=== PATIENT | male | born 1970 | race Caucasian/White ===

== ENCOUNTER → 2020-04-03 13:04 | Outpatient (BNVA) | payer OTHER, SELFPAY | PROVIDERS: Visit Provider Nurse Practitioner Family | DX: Z11.59 Encounter for screening for other viral diseases (principal); Z20.828 Contact with and (suspected) exposure to other viral communicable diseases; J06.9 Acute upper respiratory infection, unspecified | CPT/HCPCS: 87635 ==

== ENCOUNTER → 2021-06-30 08:26 | Outpatient (BNVA) | payer OTHER, SELFPAY | PROVIDERS: Visit Provider Nurse Practitioner Family | DX: Z20.822 Contact with and (suspected) exposure to COVID-19 (principal); Z20.828 Contact with and (suspected) exposure to other viral communicable diseases | CPT/HCPCS: 87635 ==

== ENCOUNTER → 2021-08-04 10:10 | Outpatient (BNVA) | payer OTHER, SELFPAY | PROVIDERS: Visit Provider Nurse Practitioner Family | DX: Z20.822 Contact with and (suspected) exposure to COVID-19 (principal); Z20.828 Contact with and (suspected) exposure to other viral communicable diseases | CPT/HCPCS: 87635 ==

== ENCOUNTER → 2022-01-12 10:16 | Outpatient (BNVA) | payer OTHER, SELFPAY | PROVIDERS: Referring Provider Family Medicine; Visit Provider Specialist | DX: R20.0 Anesthesia of skin (principal); R20.2 Paresthesia of skin | CPT/HCPCS: 73110 ==

== ENCOUNTER 2022-06-11 15:37 | Emergency (ER) | payer OTHER, SELFPAY ==
[2022-06-11 15:43] VITALS: BP 142/96; PULSE 89; RESP 18; TEMP 36.4; O2SAT 95; BMI 30.2
--- NOTE | 2022-06-11 16:08 | ED_ITS ---
HPI - General Adult General: Chief complaint: General Medical Stated complaint: high BG Time Seen by Provider: 06/11/22 16:08 History of Present Illness: Mr. Park is a 52-year-old gentleman with significant past medical history of type 2 diabetes presenting to the emergency department due to generalized illness. He reports at least a few days of feeling generally unwell with increased thirst and urination and generalized malaise. He also endorses some chest discomfort and increased frequency of reflux heartburn type symptoms. He does not typically check his blood sugars an d is unsure of how long they have been high but noticed that he did check them yesterday because he was feeling unwell and noticed that they were higher than normal. Denies significant changes in diet. Has been compliant with medication regimen. Intensity symptoms is moderate. Course has worsened. No other specific changes in health, exacerbating, or alleviating factors identified. Onset (ago): day(s) Severity: moderate Relieving factors: none Exacerbating factors: none Associated symptoms: Reports malaise Review of Systems General: Reports: 10 or more systems reviewed and unremarkable except in HPI and below Const: Reports: malaise PFS ED PFSH: Medical History Hypertension Type 2 diabetes mellitus Social History Smoking and tobacco status: never smoked Alcohol intake: never History of recent travel: No Physical Exam Const: COMMON NORMALS: alert GENERAL APPEARANCE: cooperative and well developed HENMT: COMMON NORMALS: normocephalic and atraumatic HEAD & SCALP: normocephalic and atraumatic Eye: COMMON NORMALS: conjunctivae normal CONJUNCTIVA: Yes conjunctivae normal SCLERA: sclerae normal Neck/C-Spine: COMMON NORMALS: supple GENERAL: Yes trachea midline Resp: COMMON NORMALS: clear to auscultation bilaterally EFFORT & INSPECTION: Yes able to speak in complete sentences AUSCULTATION: clear to auscultation bilaterally Cardio: COMMON NORMALS: regular rate and regular rhythm RATE: regular rate RHYTHM: regular rhythm GI: COMMON NORMALS: Soft to palpation PALPATION: Yes Soft to palpation and No Tenderness to palpation present (GI) Extremity: GENERAL: Yes normal exam except as noted and No edema Neuro: COMMON NORMALS: moves all extremities SENSORIUM/ORIENTATION: Yes alert and No Orientation impaired Psych: COMMON NORMALS: mental status grossly normal and Normal thought process present THOUGHT PROCESS: Normal thought process present Course Vital Signs: Vital signs: Vital Signs Temperature 97.5 F L 06/11/22 15:43 Pulse Rate 67 06/11/22 18:18 Respiratory Rate 16 06/11/22 18:18 Blood Pressure 137/86 06/11/22 18:18 Pulse Oximetry 99 06/11/22 18:18 Oxygen Delivery Me thod 06/11/22 18:18 MDM - General Adult Medical Decision Making 52-year-old gentleman with history of diabetes presenting with generalized illness. Exam as above EKG notable for sinus rhythm with nonspecific ST segment abnormalities, no STEMI. Hematologic panel with mild hemoconcentration. Metabolic panel with hy perglycemia and spurious hyponatremia. Ketones are negative, there is no evidence of DKA and ABG is normal. Viral rapid testing is negative. Chest x-ray with no lobar consolidation, no pneumothorax. Patient feels improved and glucoses improved with fluid bolus. Most likely etiology of patient's symptoms is diabetic hyperglycemia without evidence of DKA or HHS. Apparently the patient had issues with metformin and GI upset in the past. Plan to initiate the patient on initially low-dose insulin glargine and have patient follow-up closely with primary care for titration. The results of ED evaluation were discussed with the patient including prescriptions and/or symptomatic cares (if applicable) including appropriate and responsible use, followup plan, and return precautions. The patient verbalized understanding and felt safe for discharge. Medical Records I reviewed the patient's medical records. Lab Data I reviewed the patient's lab results. 06/11/22 17:32 06/11/22 17:32 Radiology Impressions Chest X-Ray 06/11/22 16:15 IMPRESSION: No acute findings. Laboratory Results WBC 8.3 10^3/uL (4.0-10.0) 06/11/22 17:32 RBC 5.40 10^6/uL (4.1-5.3) H 06/11/22 17:32 Hgb 15.3 g/dL (11.7-16.6) 06/11/22 17:32 Hct 44.9 % (42.0-52.0) 06/11/22 17:32 MCV 83.1 fl (80-94) 12/17/22 17:32 MCH 28.3 pg (28.0-34.0) 06/11/22 17: MCHC 34.1 g/dL (30.0-36.0) 06/11/22 17:32 RDW 12.3 % (12.1-15.1) 06/11/22 17:32 Plt Count 294 10^3/cmm (130-400) 06/11/22 17: MPV 11.6 fL (7.4-10.4) H 06/11/22 17:32 Neut % (Auto) 59.9 % 06/11/22 17:32 Lymph % (Auto) 28.6 % 06/11/22 17:32 [place] % (Auto) 7.1 % 06/11/22 17:32 Eos % (Auto) 3.3 % 06/11/22 17:32 Baso % (Auto) 0.6 % 06/11/22 17: Neut # (Auto) 4.95 10^3/uL (1.8-7.7) 06/11/22 17:32 Lymph # (Auto) 2.4 10^3/uL (0.8-4.8) 06/11/22 17:32 [place] # (Auto) 0.6 10^3/uL (0.2-0.9) 06/11/22 17:32 Eos # (Auto) 0.3 10^3/uL (0.0-0.8) 06/11/22 17: Baso # (Auto) 0.1 10^3/uL (0.0-0.1) 06/11/22 17:32 Nucleated RBC % (auto) 0 % 06/11/22 17: Nucleated RBCs # 0.0 /100WBC 06/11/22 17:32 Specimen Type Arterial 06/11/22 16:24 Sample Site Brachial, right 06/11/22 16:24 ABG pH 7.42 (7.35-7.45) 06/11/22 16:24 ABG pCO2 40.3 mmHg (35-45) 06/11/22 16:24 ABG pO2 69.6 mmHg (80.0-100.0) L 06/11/22 16:24 ABG HCO3 25.9 mmol/L (22-26) 06/11/22 16:24 ABG Base Excess 1.2 mmol/L (-2.0-2.0) 06/11/22 16:24 Hadley Test N/a 06/11/22 16:24 Hematocrit 44.0 % (42-52) 06/11/22 16:24 O2 Delivery Device Room air 06/11/22 16:24 FiO2 21.0 % 06/11/22 16:24 [employer] Production [employer] ID glc 06/11/22 16:24 Sodium 135 mmol/L (136-145) L 06/11/22 17:32 Potassium 4.1 mmol/L (3.5-5.1) 06/11/22 17:32 Chloride 96 mmol/L (98-107) L 06/11/22 17:32 Carbon Dioxide 29 mmol/L (22-29) 06/11/22 17:32 Anion Gap 14.1 (5-19) 06/11/22 17:32 BUN 15 mg/dL (6-20) 06/11/22 17:32 Creatinine 0.8 mg/dL (0.7-1.2) 06/11/22 17:32 GFR Calculation 101.1 mL/min (90-130) 06/11/22 17:32 Glucose 355 mg/dL (65-115) H 06/11/22 17:32 POC Glucose 255 mg/dL (70-110) H 06/11/22 19:20 Calculated Osmolality 295 mOsm/kg (285-295) 06/11/22 17:32 Calcium 10.0 mg/dL (8.5-10.5) 06/11/22 17:32 Total Bilirubin 0.2 mg/dL (0.15-1.2) 06/11/22 17:32 AST 22 U/L (0-40) 06/11/22 17: ALT 37 U/L (0-41) 06/11/22 17:32 Alkaline Phosphatase 94 U/L (40-130) 06/11/22 17:32 Troponin T Baseline 6 ng/L (0-15) 06/11/22 17:32 Troponin T 120 Minute 6.00 ng/L (0-15) 06/11/22 19:02 Delta Troponin T 0 ABS# (0-10) 06/11/22 19:02 Total Protein 7.5 g/dL (6.6-8.7) 06/11/22 17:32 Albumin 4.4 g/dL (3.5-5.2) 06/11/22 17:32 Globulin 3.1 g/dL (1.3-4.6) 06/11/22 17:32 Urine Color Straw (Yellow) 06/11/22 17:32 Urine Appearance Clear (CLEAR) 06/11/22 17:32 Urine pH 5 (5-7) 06/11/22 17:32 Ur Specific [place] 1.015 (1.005-1.030) 06/11/22 17:32 Urine Protein Neg (Negative) 06/11/22 17:32 Urine Glucose (UA) 4+ (Normal) H 06/11/22 17:32 Urine Ketones 1+ (Negative) H 06/11/22 17:32 Urine Blood Neg (Negative) 06/11/22 17:32 Urine Nitrate Negative (Negative) 06/11/22 17:32 Urine Bilirubin Neg (Negative) 06/11/22 17:32 Urine Urobilinogen Norm mg/dL (Negative) 06/11/22 17:32 Ur Leukocyte Esterase Negative (Negative) 06/11/22 17:32 Serum Ketones Negative (Negative) 06/11/22 17:32 Influenza Type A Ag negative (Negative) 06/11/22 17:58 Influenza Type B Ag negative (Negative) 06/11/22 17:58 SARS-CoV-2 Ag (Rapid) negative (Negative) 06/11/22 17:58 Discharge Plan Discharge Patient Disposition: Home Clinical Impression: Hyperglycemia due to type 2 diabetes mellitus Condition: Stable Prescriptions: No Action atorvastatin 10 mg tablet 10 mg PO DAILY Januvia 100 mg tablet 100 mg PO DAILY Lantus Solostar U-100 Insulin 100 unit/mL (3 mL) insulin pen 30 unit SUBCUT BID Qty: 15 6RF Rx Instructions: Increase by 5 units every 3 days that fasting glucose is >150 consistently. glipizide 5 mg tablet 5 mg PO BID Qty: 60 6RF lisinopril 20 mg tablet 20 mg PO DAILY Qty: 90 3RF Discharge Orders: Discharge ED (Routine); Ordered 06/11/22 Ordered By: Johan Lin Referrals: Junaid Soares MD [Primary Care Provider] - Discharge Diet: Diabetic Discharge Activity: Increase activity as tolerated Patient Instructions: Insulin Glargine (By injection) (Lantus, Lantus SoloStar, Toujewendy, Semglee), How to Give an Insulin Injection (ED), Diabetic Hyperglycemia (ED) Activity Restrictions/Additional Instructions: Thank you for visiting the emergency department. You were seen and evaluated for high blood sugar and associated symptoms. Though your blood sugar is high I do not see evidence of diabetic ketoacidosis or HHS that would require hospitalization. Please follow-up with your primary care provider. I will prescribe low-dose insulin glargine. Return to the emergency department for anything that you are concerned about and feel needs emergency department evaluation. Coding Level of Care Code ED [employer]anger for Cailing Fwd Exam Comprehensive
[2022-06-11 16:09] LABS: Glucose Point of Care 478 mg/dL (70-110)
--- NOTE | 2022-06-11 16:15 | XRR_ITS ---
PROCEDURE INFORMATION: Exam: XR Chest Exam date and time: 06/11/2022 4:38 PM Age: 52 years old Clinical indication: Pain; Chest pressure; Additional info: Cp TECHNIQUE: Imaging protocol: Radiologic exam of the chest. Views: 1 view. COMPARISON: No relevant prior studies available. FINDINGS: Lungs: Unremarkable. No consolidation. Pleural spaces: Unremarkable. No pleural effusion. No pneumothorax. Heart/Mediastinum: Unremarkable. No cardiomegaly. Bones/joints: Unremarkable. XR/XR chest 1V portable [id number] IMPRESSION: No acute findings.
--- NOTE | 2022-06-11 16:16 | ECG_ITS ---
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
[2022-06-11 16:36] LABS: ABG PCO2 40.3 mmHg (35-45); ABG PH Result 7.42 (7.35-7.45); Base Excess ABG 1.2 mmol/L (-2.0-2.0); Blood Gas Operator Identificat glc; Blood Gas Sample Site Brachial, right; Blood Gas Sample Type Arterial; HCO3 ABG 25.9 mmol/L (22-26); Oxygen Device ROOM AIR; PO2 ABG 69.6 mmHg (80.0-100.0)
[2022-06-11 17:42] VITALS: BP 123/80; PULSE 76; RESP 16; O2SAT 97
[2022-06-11 17:44] LABS: Basophils # 0.1 10^3/uL (0.0-0.1); Basophils % 0.6 %; Eosinophils # 0.3 10^3/uL (0.0-0.8); Eosinophils % 3.3 %; Hematocrit 44.9 % (42.0-52.0); Hemoglobin 15.3 g/dL (11.7-16.6); Lymphocytes # 2.4 10^3/uL (0.8-4.8); Lymphocytes % 28.6 %; Mean Corpuscular HGB Conc 34.1 g/dL (30.0-36.0); Mean Corpuscular Hemoglobin 28.3 pg (28.0-34.0); Mean Corpuscular Volume 83.1 fl (80-94); Mean Platelet Volume 11.6 fL (7.4-10.4); Monocytes # 0.6 10^3/uL (0.2-0.9); Monocytes % 7.1 %; Neutrophils # 4.95 10^3/uL (1.8-7.7); Neutrophils % 59.9 %; Nucleated Red Blood Cells % 0 %; Platelet Count 294 10^3/cmm (130-400); Red Cell Distribution Width 12.3 % (12.1-15.1); White Blood Count 8.3 10^3/uL (4.0-10.0)
[2022-06-11 17:57] LABS: Add Urine Microscopic? NO; Charge for UA Resulting for Rev
[2022-06-11 18:01] LABS: Protein Urine Neg (Negative); Specific Gravity, Urine 1.015 (1.005-1.030); Urine Appearance Clear (CLEAR); Urine Color Straw (Yellow); pH Urine 5 (5-7)
[2022-06-11 18:02] LABS: Glucose Urine UA 4+ (Normal); Ketones Urine 1+ (Negative)
[2022-06-11 18:05] LABS: Bilirubin Urine Neg (Negative); Blood Urine Neg (Negative); Leukocyte Esterase Urine Negative (Negative); Nitrate Urine Negative (Negative); Urobilinogen Urine Norm (Negative)
[2022-06-11 18:09] LABS: Ketone (Acetest) Serum Negative (Negative)
[2022-06-11] MEDS: sodium chloride 0.9% 1,000 ML 999 ML IV (18:13)
--- NOTE | 2022-06-11 18:16 | ECG_ITS ---
[facility] Test Date: 2022-06-11 Pat Name: Celio Park Department: Room: Gender: Male [employer] Justice: : 1970 Requested By: Johan Lin Order Number: [id number] Reading MD: Ryan Haji Measurements Intervals [place] Rate: 66 P: 16 AL: 132 QRS: 40 QRSD: 94 T: 21 QT: 378 QTc: 396 Interpretive Statements SINUS RHYTHM NONSPECIFIC T-WAVE ABNORMALITY Compared to ECG 06/11/2022 16:37:24 T-wave abnormality now present Electronically Signed On 06-12-2022 15:42:15 DIGITAL PRESS OPERATOR by Ryan Haji [id number]
[2022-06-11 18:18] VITALS: BP 137/86; PULSE 67; RESP 16; O2SAT 99
[2022-06-11 18:21] LABS: Alanine Aminotransferase 37 U/L (0-41); Albumin Level 4.4 g/dL (3.5-5.2); Alkaline Phosphatase 94 U/L (40-130); Anion Gap 14.1 (5-19); Aspartate Amino Transferase 22 U/L (0-40); Blood Urea Nitrogen 15 mg/dL (6-20); Carbon Dioxide 29 mmol/L (22-29); Chloride 96 mmol/L (98-107); Globulin 3.1 g/dL (1.3-4.6); Glomerular Filtration Rate 101.1 mL/min (90-130); Glucose 355 mg/dL (65-115); Osmolality Calculated 295 mOsm/kg (285-295); Potassium 4.1 mmol/L (3.5-5.1); Sodium 135 mmol/L (136-145); Total Bilirubin 0.2 mg/dL (0.15-1.2); Total Protein 7.5 g/dL (6.6-8.7)
[2022-06-11 18:22] LABS: Troponin(5th) Baseline 6 ng/L (0-15)
[2022-06-11 18:24] LABS: Influenza A by IFA negative (Negative); Influenza B by IFA negative (Negative); SARS Covid-2 Antigen negative (Negative)
[2022-06-11 19:34] LABS: Glucose Point of Care 255 mg/dL (70-110)
[2022-06-11 19:57] LABS: Troponin 5 2HR Delta 0 ABS# (0-10)
== END 2022-06-11 19:55 | disposition home or self-care (01) ==
PROVIDERS: Emergency Provider Emergency Medicine; PCP Family Medicine
DX: E11.65 Type 2 diabetes mellitus with hyperglycemia (principal); Z79.84 Long term (current) use of oral hypoglycemic drugs; Z79.4 Long term (current) use of insulin; Z20.822 Contact with and (suspected) exposure to COVID-19; I10 Essential (primary) hypertension
CPT/HCPCS: 36415; 36416; 36600; 71045; 80053; 81003; 82009; 82803; 82962; 84484; 85025; 87426; 87804; 93005; 99285; J7030

== ENCOUNTER 2022-08-12 06:42 | Day surgery (SDC) | payer OTHER, SELFPAY ==
[2022-08-11 11:11] VITALS: BMI 30.1
[2022-08-12] VITALS (8 sets, daily range): BP systolic 95–124; BP diastolic 73–91; PULSE 65–93; RESP 9–18; TEMP 36.1–36.3; O2SAT 96–100
--- NOTE | 2022-08-12 06:52 | P.HPUD_ITS ---
Surgery/Procedure H&P Update DATE OF PROCEDURE: August 12, 2022 DATE H&P PERFORMED: 07/25/22 H&P UPDATE INFORMATION: I have reviewed H&P completed within last 30 days, I have examined patient prior to procedure, No changes to prior documentation and [place] is [place] [facility] [place] indicated PREOP DIAGNOSIS: Right carpal tunnel syndrome PLANNED PROCEDURE: Operation Date: 08/12/22 08:10 Proposed Procedures p RIGHT CARPAL TUNNEL RELEASE 92071 G56.00(Right) - Alexandra Benitez MD Related Problem List Diagnoses (1) Carpal tunnel syndrome on right:
[2022-08-12] MEDS: sodium chloride 0.9% 1,000 ML 30 ML IV (07:11)
[2022-08-12] MEDS: acetaminophen 1,000 MG/100 ML PIGGYBACK 400 MG IV (07:11)
[2022-08-12] MEDS: CELEcoxib 200 mg Capsule 400 MG PO (07:21)
[2022-08-12 07:29] LABS: Glucose Point of Care 147 mg/dL (70-110)
--- NOTE | 2022-08-12 07:47 | ANES.PREANE2 ---
Pre-Anesthetic Assessment Height/Weight: Height 1.73 m Weight 89.811 kg Temp Pulse Resp BP Pulse Ox O2 Del Method 97.4 F L 80 17 124/91 96 Nasal Cannula 08/12/22 07:00 08/12/22 07:00 08/12/22 07:00 08/12/22 07:00 08/12/22 07:00 08/12/22 07:00 Preop Diagnosis: Right carpal tunnel syndrome Operation Date: 08/12/22 08:10 Proposed Procedures p RIGHT CARPAL TUNNEL RELEASE 70409 G56.00(Right) - Alexandra Benitez MD Familial anesthetic complications: none Was Beta Rachell taken within 24 hours: N/A Was Clonidine taken within 24 hours: N/A Last intake: Intake Last Liquid Date 08/11/22 Last Liquid Time 20:00 Last Solid Date 08/11/22 Last Solid Time 18:00 Social No alcohol and No tobacco Exam alert, oriented x 3, clear to auscultation bilaterally and regular rate & rhythm Airway Submandibular: within normal limits Cervical ROM: within normal limits Mallampati: Class II Dentition: full CV/HEM Hypertension Metabolic Diabetes Mellitus and Hyperlipidemia Anesthetic Plan ASA status: 2 Anesthesia: Choice Medications/Allergies Home Medications Medication Instructions Recorded Confirmed Last Taken Type lisinopril 20 mg tablet 20 mg PO DAILY #90 tabs 01/28/22 08/12/22 08/11/22 Rx atorvastatin 10 mg tablet 10 mg PO DAILY 03/01/22 08/12/22 08/11/22 History glipizide 5 mg tablet 5 mg PO BID #60 tabs 06/14/22 08/12/22 08/11/22 Rx pen needle, diabetic 32 gauge x #100 ea 06/15/22 07/25/22 Unknown Rx 3/16 (Comfort Touch Pen Needle) blood-glucose transmitter #1 ea 06/20/22 07/25/22 Unknown Rx (Eversense E3 Smart Transmitter device) glucose #1 ea 06/20/22 07/25/22 Unknown Rx sensor,implantable,continuous with dexamethasone subcutaneous (Eversense E3 Sensor-Jerry subcutaneous device) insulin glargine 100 unit/mL (3 20 unit SUBCUT BID 06/30/22 08/12/22 08/11/22 History mL) subcutaneous pen (Lantus Solostar U-100 Insulin) sitagliptin phosphate 100 mg 100 mg PO DAILY 08/11/22 08/12/22 08/11/22 History tablet (Januvia) Allergies Allergy/AdvReac Type Severity Reaction Status Date / Time amoxicillin Allergy Intermediate rash Verified 07/25/22 08:05 Current Medications Generic Name Dose Route Start Last Admin Trade Name Freq PRN Reason Stop Dose Admin Sodium Chloride 1,000 mls @ 30 mls/hr 08/12/22 07:00 08/12/22 07:11 Sodium Chloride 0.9% IV 08/13/22 06:59 30 mls/hr .Q24H GISELLE Administration PFSH Anesthesia Medical History (Updated 07/25/22 @ 11:49 by Alexandra Benitez MD) Hypertension Type 2 diabetes mellitus Social History Smoking and tobacco status: never smoked Alcohol intake: never History of recent travel: No Data Anesthesia Cardiac Studies: No Data to Display
[2022-08-12] MEDS: clindamycin 600 MG/50 ML PREMIX 100 MG IV (07:59)
--- NOTE | 2022-08-12 08:35 | PM.OP ---
Operative Report Date of procedure: August 12, 2022 Pre-op diagnosis: Right carpal tunnel syndrome? Post-op diagnosis: Right carpal tunnel syndrome? Post-op findings: Severe compression across the median nerve with adherence to the undersurface of the transverse carpal ligament. Narrowing and fibrous tissue within the canal. Slight purplish discoloration. Procedure done: Right carpal tunnel release Pathology: none sent Surgeon: Alexandra Benitez Bottom Turning Lathe Tender: None Anesthesia: General (Per LMA, ASA 2) Estimated blood loss (mL): 3 Tourniquet time (min): 12 (At 250 mmHg) IV fluids (mL): 500 Urine output (mL): 0 (No [place]) Complications: None Condition: stable Disposition: PACU (Then return to same-day surgery for discharge to home) Brief History: This is a 52 year old male patient here today for a right carpal tunnel release.? He explains his symptoms worsened over time, and they impacted his activities of daily living. He states the pain and numbness sensations make it difficult for him to sleep at night. Risks and complications of surgery were discussed with the patient when he was seen in my office at his preoperative visit. Questions were answered and consents were signed. The patient is again seen in the preop holding area and given the opportunity to ask questions and the surgical procedure is again reviewed. Procedure: The patient was brought to the operating theater. The patient had general anesthesia per LMA, ASA 2. The tourniquet was elevated to 250 mmHg for a total tourniquet time of 12 minutes. The patient was also given Ancef 2 g preoperatively. The arm was then prepped and draped with DuraPrep in usual fashion with the arm draped free. A surgical pause was performed. At the time, the surgical pause, we confirmed the site and side of surgery. We also confirmed the patient's identity, appropriate and timely administration of preoperative antibiotics and preoperative surgical markings. An incision was then made along the thenar crease. The incision crossed the wrist joint in a curvilinear fashion. Dissection continued through skin and soft tissues using a scalpel. The palmaris longus was identified along with the transverse carpal ligament. Each of these was released carefully to avoid injury to the median nerve. We were able to dissect gently into the carpal canal which was noted to be quite tight with significant compression across the median nerve. The nerve was visualized and was an hourglass shape with adherence to the undersurface of the transverse carpal ligament.? There is also purplish discoloration to the nerve.? The canal was subsequently palpated to assure there was no bony encroachment upon the canal. There was a quite thickened fibrous tissue within the canal, and this was opened longitudinally as well. The canal was then palpated distally and proximally to assure that my small finger was passed easily without impingement. Finding this to be so, attention was directed to closure. The wound was irrigated with ropivacaine plain. It was then closed with 3-0 nylon in an interrupted mattress fashion. Sterile dressing was then placed consisting of Dermabond, OpSite, fluffed fluffs, sterile soft roll, and an Raul wrap. The tourniquet was released after 12 minutes. There were no complications. There were no specimens. The procedure was well tolerated. Plan is the patient will be discharged home. Related Problem List Diagnoses (1) Carpal tunnel syndrome on right:
[2022-08-12] MEDS: HYDROcodone-acetaminophen 5-325 mg Tablet 1 TAB PO (09:41)
--- NOTE | 2022-08-12 14:17 | ANE.PACU2 ---
Inpatient post-anesthesia follow up: Airway intact: Yes Vital signs: Temperature 97.0 F Pulse Rate 65 Respiratory Rate 18 Blood Pressure 117/86 Pulse Oximetry 99 Oxygen Delivery Me thod Room Air Oxygen Flow Rate 6 Fraction of Inspir ed Oxygen Hydration adequate: Yes Nausea and vomiting: No Pain level: 2 Mental status: Baseline
== END 2022-08-12 09:55 | disposition home or self-care (01) ==
PROVIDERS: PCP Family Medicine; Visit Provider Specialist
PROC: (CPT 64721; principal; 2022-08-12 08:10)
DX: G56.01 Carpal tunnel syndrome, right upper limb (principal); I10 Essential (primary) hypertension; E11.9 Type 2 diabetes mellitus without complications; E78.5 Hyperlipidemia, unspecified; Z79.4 Long term (current) use of insulin
CPT/HCPCS: 64721; 36416; 82962; J0131; J1100; J1200; J2405; J2704; J3010; J3490; J7030

== ENCOUNTER 2022-09-02 09:12 | Day surgery (SDC) | payer OTHER, SELFPAY ==
[2022-09-01 11:46] VITALS: BMI 30.4
[2022-09-02] VITALS (9 sets, daily range): BP systolic 121–174; BP diastolic 78–99; PULSE 74–90; RESP 16–18; TEMP 36.5–36.7; O2SAT 95–98
--- NOTE | 2022-09-02 08:12 | P.HPUD_ITS ---
Surgery/Procedure H&P Update DATE OF PROCEDURE: September 02, 2022 DATE H&P PERFORMED: 07/25/22 H&P UPDATE INFORMATION: I have reviewed H&P completed within last 30 days, I have examined patient prior to procedure, No changes to prior documentation and H&[place] is in [facility] [place] date indicated PREOP DIAGNOSIS: Right carpal tunnel syndrome PLANNED PROCEDURE: Operation Date: 09/02/22 10:45 Proposed Procedures p LEFT CARPAL TUNNEL RELEASE 88629, G56.00(Left) - Alexandra Benitez MD Related Problem List Diagnoses (1) Carpal tunnel syndrome, left:
[2022-09-02] MEDS: acetaminophen 1,000 MG/100 ML PIGGYBACK 400 MG IV (09:50)
[2022-09-02] MEDS: sodium chloride 0.9% 1,000 ML 30 ML IV (09:51)
[2022-09-02 09:57] LABS: Glucose Point of Care 121 mg/dL (70-110)
[2022-09-02] MEDS: CELEcoxib 200 mg Capsule 400 MG PO (09:57)
--- NOTE | 2022-09-02 09:58 | ANES.PREANE2 ---
Pre-Anesthetic Assessment Height/Weight: Height 1.73 m Weight 90.718 kg Temp Pulse Resp BP Pulse Ox O2 Del Method 97.9 F 80 16 126/86 96 09/02/22 09:40 09/02/22 09:40 09/02/22 09:40 09/02/22 09:40 09/02/22 09:40 09/02/22 09:40 Preop Diagnosis: Left carpal tunnel syndrome Operation Date: 09/02/22 10:45 Proposed Procedures p LEFT CARPAL TUNNEL RELEASE 47632, G56.00(Left) - Alexandra Benitez MD Familial anesthetic complications: PONV Was Beta Rachell taken within 24 hours: N/A Was Clonidine taken within 24 hours: N/A Last intake: Intake Last Liquid Date 09/01/22 Last Liquid Time 21:00 Last Solid Date 09/01/22 Last Solid Time 20:00 Social No alcohol and No tobacco Exam alert, oriented x 3, clear to auscultation bilaterally and regular rate & rhythm Airway Mallampati: Class II Dentition: full CV/HEM Hypertension Metabolic Diabetes Mellitus and Hyperlipidemia Anesthetic Plan ASA status: 2 Anesthesia: General Risk of > 500 ml blood loss (7ml/kg in children): No Medications/Allergies Home Medications Medication Instructions Recorded Confirmed Last Taken Type lisinopril 20 mg tablet 20 mg PO DAILY #90 tabs 01/28/22 09/02/22 09/01/22 Rx atorvastatin 10 mg tablet 10 mg PO DAILY 03/01/22 09/02/22 09/01/22 History glipizide 5 mg tablet 5 mg PO BID #60 tabs 06/14/22 09/02/22 09/01/22 Rx morning dose only pen needle, diabetic 32 gauge x #100 ea 06/15/22 09/01/22 Unknown Rx 3/16 (Comfort Touch Pen Needle) blood-glucose transmitter #1 ea 06/20/22 09/01/22 Unknown Rx (Eversense E3 Smart Transmitter device) glucose #1 ea 06/20/22 09/01/22 Unknown Rx sensor,implantable,continuous with dexamethasone subcutaneous (Eversense E3 Sensor-Jerry subcutaneous device) insulin glargine 100 unit/mL (3 20 unit SUBCUT BID PRN blood sugar 06/30/22 09/02/22 08/31/22 History mL) subcutaneous pen (Lantus >150 Solostar U-100 Insulin) sitagliptin phosphate 100 mg 100 mg PO DAILY 08/11/22 09/02/22 09/01/22 History tablet (Januvia) Allergies Allergy/AdvReac Type Severity Reaction Status Date / Time amoxicillin Allergy Intermediate rash Verified 08/26/22 09:12 Current Medications Generic Name Dose Route Start Last Admin Trade Name Freq PRN Reason Stop Dose Admin Sodium Chloride 1,000 mls @ 30 mls/hr 09/02/22 09:30 09/02/22 09:51 Sodium Chloride 0.9% IV 09/03/22 09:29 30 mls/hr .Q24H GISELLE Administration PFSH Anesthesia Medical History Hypertension Type 2 diabetes mellitus Social History Smoking and tobacco status: never smoked Alcohol intake: never Data Anesthesia Cardiac Studies: No Data to Display
[2022-09-02] MEDS: ceFAZolin 2,000 MG in sodium chloride 0.9% (plus) 50 ML 100 MG IV (10:07)
--- NOTE | 2022-09-02 11:01 | P.OP_ITS ---
Operative Report Date of procedure: September 02, 2022 Pre-op diagnosis: Left carpal tunnel release Post-op diagnosis: Left carpal tunnel release Post-op findings: Severe compression across the median nerve. Adherence to the undersurface of the transverse carpal ligament with hourglass configuration and slight purplish discoloration. Procedure done: Left carpal tunnel release Pathology: none sent Surgeon: Alexandra Benitez Transitions Rn Care Coordinator: None Anesthesia: General (Per LMA, ASA 2) Estimated blood loss (mL): 6 Tourniquet time (min): 11 (At 250 mmHg) IV fluids (mL): 700 Urine output (mL): 0 (No Staton) Complications: None Condition: stable Disposition: PACU (Then return to same-day surgery for discharge to home) Brief History: This is a 52 year old male patient here today for a left carpal tunnel release.? He explains his symptoms worsened over time, and they impacted his activities of daily living. He states the pain and numbness sensations make it difficult for him to sleep at night.? Patient previously underwent right carpal tunnel release on August 12, 2022. He has done well following this and wishes to proceed with left carpal tunnel release. Risks and complications of surgery were discussed with the patient when he was seen in my office at his preoperative visit.? Questions were answered and consents were signed.? The patient is again seen in the preop holding area and given the opportunity to ask questions and the surgical procedure is again reviewed. Procedure: The patient was brought to the operating theater. The patient had general anesthesia per LMA, ASA 2. The tourniquet was elevated to 250 mmHg for a total tourniquet time of 11 minutes. The patient was also given Ancef 2 g preoperatively. The arm was then prepped and draped with DuraPrep in usual fashion with the arm draped free. A surgical pause was performed. At the time, the surgical pause, we confirmed the site and side of surgery. We also confirmed the patient's identity as well as appropriate and timely administration of preoperative antibiotics and preoperative surgical markings. An incision was then made along the thenar crease. The incision crossed the wrist joint in a curvilinear fashion. Dissection continued through skin and soft tissues using a scalpel. The palmaris longus was identified along with the transverse carpal ligament. Each of these was released carefully to avoid injury to the median nerve. We were able to dissect gently into the carpal canal which was noted to be quite tight with significant compression across the median nerve. The nerve was visualized and was an hourglass shape with adherence to the undersurface of the transverse carpal ligament.? There is also purplish discoloration to the nerve with an hourglass deformity.? The canal was subsequently palpated to assure there was no bony encroachment upon the canal. There was a quite thickened fibrous tissue within the canal, and this was opened longitudinally as well. The canal was then palpated distally and proximally to assure that my small finger was passed easily without impingement. Finding this to be so, attention was directed to closure. The wound was irrigated with ropivacaine plain. It was then closed with 3-0 nylon in an interrupted mattress fashion. Sterile dressing was then placed consisting of Dermabond, OpSite, fluffed fluffs, sterile soft roll, and an Raul wrap. The tourniquet was released after 11 minutes. There were no complications. There were no specimens. The procedure was well tolerated. Plan is the patient will be discharged home. Related Problem List Diagnoses (1) Carpal tunnel syndrome, left:
--- NOTE | 2022-09-02 11:04 | SUR.PHASEI ---
1052 pt to recovery via stretcher. resp even and unlabored. simple mask in place at 6L, spo2 97%. dressing dry and intact to left hand.
[2022-09-02] MEDS: HYDROcodone-acetaminophen 5-325 mg Tablet 1 TAB PO (11:48)
--- NOTE | 2022-09-02 12:25 | ANE.PACU2 ---
Inpatient post-anesthesia follow up: Airway intact: Yes Vital signs: Temperature 97.7 F Pulse Rate 75 Respiratory Rate 18 Blood Pressure 168/99 Pulse Oximetry 97 Oxygen Delivery Me thod Room Air Oxygen Flow Rate 6 Fraction of Inspir ed Oxygen Hydration adequate: Yes Nausea and vomiting: No Pain level: 1 Mental status: Baseline
== END 2022-09-02 12:07 | disposition home or self-care (01) ==
PROVIDERS: PCP Family Medicine; Visit Provider Specialist
PROC: (CPT 64721; principal; 2022-09-02 10:35)
DX: G56.03 Carpal tunnel syndrome, bilateral upper limbs (principal); E11.9 Type 2 diabetes mellitus without complications; E78.5 Hyperlipidemia, unspecified; Z79.4 Long term (current) use of insulin; Z79.84 Long term (current) use of oral hypoglycemic drugs; Z88.0 Allergy status to penicillin
CPT/HCPCS: 64721; 36416; 82962; J0131; J0690; J2250; J2405; J2704; J3010; J3490; J7030

== ENCOUNTER → 2022-09-23 07:34 | Outpatient (BNVA) | payer OTHER, SELFPAY | PROVIDERS: PCP Family Medicine; Visit Provider Family Medicine | DX: Z51.81 Encounter for therapeutic drug level monitoring (principal); E11.9 Type 2 diabetes mellitus without complications; R35.0 Frequency of micturition; R07.9 Chest pain, unspecified | CPT/HCPCS: 80053; 80061; 83036; 84153; 85025 ==

== ENCOUNTER 2023-05-11 12:44 | Outpatient (CLI) | payer OTHER, SELFPAY ==
--- NOTE | 2023-05-11 13:00 | MR_ITS ---
WS: [id number] MRI RIGHT SHOULDER HISTORY: right shoulder pain, suspect rotator cuff tear COMPARISON: None available. TECHNIQUE: Multiplanar sequences of the shoulder joint are submitted. Moderate AC joint arthritis. Very slight hypertrophic encroachment upon the supraspinatus. There is m ore significant subacromial impingement with an osteophyte from the undersurface of the distal acromi on. Where the osteophyte contacts the supraspinatus tendon directly over the humeral head there is in creasing fluid. Fluid extends from the distal acromion laterally over the humeral head deep to the de ltoid muscle. There is a small amount of fluid in the biceps tendon. No subluxation or tear. No os ac romion. No rotator cuff muscle atrophy or edema. There is deformity of the distal supraspinatus tendon by AC joint arthritis. No tear is identified. Mild tendinopathy distal supraspinatus. No joint effusion. No labral tear. IMPRESSION: 1. Moderate subacromial impingement upon the supraspinatus tendon directly over the humeral head. Beg inning at the level of the acromial impingement is fluid extending laterally over the humeral head. F luid is deep to the deltoid muscle. 2. Moderate AC joint arthritis. 3. No rotator cuff tendon tear. There is mild tendinopathy of the distal supraspinatus.
== END 2023-05-11 12:45 | disposition home or self-care (01) ==
LOC: RAD 12:47
PROVIDERS: PCP Family Medicine; Visit Provider Clinical Nurse Specialist Adult Health
DX: M75.41 Impingement syndrome of right shoulder (principal); M19.011 Primary osteoarthritis, right shoulder
CPT/HCPCS: 73221

== ENCOUNTER 2023-06-06 09:17 | Day surgery (SDC) | payer OTHER, SELFPAY ==
[2023-06-06] VITALS (9 sets, daily range): BP systolic 131–186; BP diastolic 85–111; PULSE 73–96; RESP 16–18; TEMP 36.1–36.4; O2SAT 94–100
[2023-06-06] MEDS: gabapentin 300 mg Capsule PO (09:50)
[2023-06-06] MEDS: CELEcoxib 200 mg Capsule 400 MG PO (09:50)
[2023-06-06] MEDS: sodium chloride 0.9% 1,000 ML 30 ML IV (09:51)
--- NOTE | 2023-06-06 10:38 | W.PM.OPSUD ---
Surgery/Procedure H&P Update DATE OF PROCEDURE: June 06, 2023 DATE H&P PERFORMED: 05/08/23 H&P UPDATE INFORMATION: I have reviewed H&P completed within last 30 days, I have examined patient prior to procedure, No changes to prior documentation and H&P is in [facility] EMR on date indicated CHANGES TO PREVIOUS DOCUMENTATION: MRI Findings: 1. Moderate subacromial impingement upon the supraspinatus tendon directly over the humeral head. Beginning at the level of the acromial impingement is fluid extending laterally over the humeral head. Fluid is deep to the deltoid muscle. 2. Moderate AC joint arthritis. 3. No rotator cuff tendon tear. There is mild tendinopathy of the distal supraspinatus. PLANNED PROCEDURE: Operation Date: 06/06/23 10:55 Proposed Procedures p Right shoulder open acromioplasty, distal clavicle resection with possible rotator cuff repai [id number], [id number], 86504,M75.41,M25.511(Right) - Alexandra Benitez MD s Distal Clavicle Resection(Right) - Alexandra Benitez MD Related Problem List Diagnoses (1) Rotator cuff impingement syndrome of right shoulder: (2) Arthritis of right acromioclavicular joint:
--- NOTE | 2023-06-06 10:39 | ANES.PREANE2 ---
Pre-Anesthetic Assessment Height/Weight: Height 1.73 m Weight 92.986 kg Temp Pulse Resp BP Pulse Ox O2 Del Method 97.5 F L 84 16 142/104 96 Room Air 06/06/23 09:23 06/06/23 09:23 06/06/23 09:23 06/06/23 09:23 06/06/23 09:23 06/06/23 09:43 Operation Date: 06/06/23 10:55 Proposed Procedures p Right shoulder open acromioplasty, distal clavicle resection with possible rotator cuff repai [id number], [id number], 08984,M75.41,M25.511(Right) - Alexandra Benitez MD s Distal Clavicle Resection(Right) - Alexandra Benitez MD Familial anesthetic complications: none Was Beta Rachell taken within 24 hours: N/A Was Clonidine taken within 24 hours: N/A Last intake: Intake Last Liquid Date 06/05/23 Last Liquid Time 23:30 Last Solid Date 06/05/23 Last Solid Time 23:00 Social No alcohol and No tobacco Exam alert, oriented x 3, clear to auscultation bilaterally and regular rate & rhythm Airway Mallampati: Class II Dentition: full Pulmonary Sleep Apnea CV/HEM Hypertension Metabolic Diabetes Mellitus and Hyperlipidemia Anesthetic Plan ASA status: 3 Anesthesia: General and Regional (specify below) Risk of > 500 ml blood loss (7ml/kg in children): No Medications/Allergies Home Medications Medication Instructions Recorded Confirmed Last Taken Type blood-glucose transmitter #1 ea 06/20/22 05/12/23 Unknown Rx (Eversense E3 Smart Transmitter device) glucose #1 ea 06/20/22 05/12/23 Unknown Rx sensor,implantable,continuous with dexamethasone subcutaneous (Eversense E3 Sensor-Jerry subcutaneous device) insulin glargine 100 unit/mL (3 22 unit SUBCUT BID PRN blood sugar 09/29/22 06/05/23 06/05/23 History mL) subcutaneous pen (Lantus >150 Solostar U-100 Insulin) atorvastatin 10 mg tablet See Rx Instructions .Route 10/14/22 06/05/23 05/29/23 Rx .COMPLEX #90 tabs glipizide 5 mg tablet 5 mg PO BID #60 tabs 01/18/23 06/05/23 06/05/23 Rx lisinopril 20 mg tablet See Rx Instructions .Route 01/18/23 06/05/23 06/05/23 Rx .COMPLEX #90 tabs pen needle, diabetic 32 gauge x ##100 03/24/23 05/12/23 Unknown Rx (TechLITE Pen Needle) Allergies Allergy/AdvReac Type Severity Reaction Status Date / Time amoxicillin Allergy Intermediate rash Verified 06/05/23 14:47 Current Medications Generic Name Dose Route Start Last Admin Trade Name Freq PRN Reason Stop Dose Admin Sodium Chloride 1,000 mls @ 30 mls/hr 06/06/23 09:30 06/06/23 09:51 Sodium Chloride 0.9% IV 06/07/23 09:29 30 mls/hr .Q24H GISELLE Administration PFSH Anesthesia Medical History (Updated 05/15/23 @ 16:24 by LINDSEY Escalante) Arthritis of right acromioclavicular joint Right anterior shoulder pain Hypertension Type 2 diabetes mellitus Surgical History Hx of wisdom tooth extraction Hx of colonoscopy History of carpal tunnel release of both wrists Social History Smoking and tobacco/nicotine status: never used tobacco/nicotine Alcohol intake: never Substance/Drug Use: never Data Anesthesia Cardiac Studies: No Data to Display
[2023-06-06] MEDS: ceFAZolin 2,000 MG in sodium chloride 0.9% (plus) 50 ML 100 MG IV (10:50)
[2023-06-06] MEDS: ceFAZolin 1,000 mg SDV 1000 MG IRRIGATION (11:50)
--- NOTE | 2023-06-06 12:43 | P.OP_ITS ---
Operative Report Date of procedure: June 06, 2023 Pre-op diagnosis: Right shoulder impingement and degenerative osteoarthritis of the acromioclavicular joint Post-op diagnosis: Right shoulder impingement and degenerative osteoarthritis of the acromioclavicular joint Post-op findings: Severe impingement with significant degenerative osteoarthritis of the acromioclavicular joint Procedure done: Right shoulder open acromioplasty and distal clavicle resection with bursectomy Implants: None Specimens removed/disposition: None Surgeon: Alexandra Benitez MD [employer] Group Leader: Jeni Pappas, nurse practitioner, who services were required for retraction, exposure, and completion of the surgical procedure. Anesthesia: General (Intubated, ASA 2 with supplemental interscalene block) Estimated blood loss (mL): 10 IV fluids (mL): 1,200 Urine output (mL): 0 (No Staton) Complications: None Findings: Significantly thickened bursal tissue with no evidence of rotator cuff tear, significant impingement and acromioclavicular joint osteoarthritis Condition: stable Disposition: PACU (Then return to same-day surgery for discharge to home) Brief History: This 53-year-old gentleman presented for right shoulder pain. MRI confirmed significant impingement as well as distal acromioclavicular joint osteoarthritis. The patient had pain with range of motion of the shoulder and he described this as an ache. He had been prescribed prednisone for the right shoulder, but he was not taking it secondary to effects on his blood sugar. He also took ibuprofen. After discussion with the patient and the significant findings on his MRI, the patient elected to proceed with open acromioplasty and distal clavicle resection. This would include evaluation of the rotator cuff with appropriate repair if indicated. At the time of the office visit, questions were answered and consents were signed. Procedure: The patient was brought to the operating theater and underwent general anesthesia, intubated, ASA 2 with supplemental preoperative interscalene block. The patient was placed in a beachchair position and subsequently the right upper extremity was prepped and draped in the usual fashion utilizing DuraPrep. The arm was draped free. A surgical pause was performed prior to commencement of the surgical procedure. At the time of the surgical pause, we confirmed the site and side of surgery as well as administration of appropriate preoperative antibiotics Ancef 2 g. MRI was also reviewed at that time. Following the surgical pause, an incision was made at approximately the level of the acromioclavicular joint extending across the anterolateral corner of the acromion and distally as necessary. Care was taken to avoid injury to the axillary nerve by limiting the distal extent of the incision. Dissection continued through skin and soft tissues using a scalpel. Hemostasis was obtained using electrocautery. Soft tissues were elevated off the acromion. An acromioplasty was then accomplished using a combination of a saw and a power rasp. With this, we were able to remove compression caused by the acromion. The bursa was quite thickened, and bursectomy was accomplished. Following resection of the bursa, the rotator cuff was then evaluated to look for tears. The shoulder was placed through full range of motion, and there was no rotator cuff tear visualized. There was also no rotator cuff tear palpated. The acromioclavicular joint was exposed. A saw was then used to resect the distal clavicle without difficulty. The undersurface of the clavicle was palpated and was slightly further debrided. A power rasp was used to further smooth the area. When this was felt to be adequately resected, the wound was irrigated. Attention was then directed to closure. The wound was irrigated and closure was accomplished with 0 Vicryl in the capsular tissues overlying the acromioclavicular joint area as well as over the acromion and down into the deltoid muscle. 3-0 Monocryl was used to close the subcutaneous tissues followed by 4-0 Monocryl subcuticular closure. This was followed by Dermabond, Steri-Strips, and OpSite. The patient was placed in a shoulder immobilizer and was returned to the recovery room in satisfactory condition. The patient will be discharged to home to follow-up with me in the office as scheduled, and she is given her appointment. There were no complications and no specimens. Related Problem List Diagnoses (1) Rotator cuff impingement syndrome of right shoulder: (2) Arthritis of right acromioclavicular joint:
[2023-06-06] MEDS: ondansetron 2 mg/ML SDV 2 mL 4 MG IVP ×2 (13:35→14:30)
[2023-06-06] MEDS: HYDROcodone-acetaminophen 5-325 mg Tablet 1 TAB PO (14:07)
[2023-06-07 06:24] LABS: Glucose Point of Care 177 mg/dL (70-110)
== END 2023-06-06 14:50 | disposition home or self-care (01) ==
PROVIDERS: PCP Family Medicine; Visit Provider Specialist
PROC: (CPT 23130; principal; 2023-06-06 10:45)
PROC: (CPT 23120; 2023-06-06 10:45)
DX: M25.811 Other specified joint disorders, right shoulder (principal); M19.011 Primary osteoarthritis, right shoulder; M75.41 Impingement syndrome of right shoulder; I10 Essential (primary) hypertension; E11.9 Type 2 diabetes mellitus without complications; Z79.4 Long term (current) use of insulin
CPT/HCPCS: 23120; 23130; 36416; 82962; J0690; J1100; J2405; J2704; J2795; J3010; J3490; J7030

== ENCOUNTER → 2024-01-08 08:00 | Outpatient (BNVA) | payer OTHER, SELFPAY | PROVIDERS: PCP Family Medicine; Visit Provider Nurse Practitioner | DX: M65.332 Trigger finger, left middle finger | CPT/HCPCS: 73130 ==

== ENCOUNTER → 2024-01-09 07:17 | Outpatient (BNVA) | payer OTHER, SELFPAY | PROVIDERS: PCP Family Medicine; Visit Provider Family Medicine | DX: Z51.81 Encounter for therapeutic drug level monitoring (principal); Z13.220 Encounter for screening for lipoid disorders; N40.0 Benign prostatic hyperplasia without lower urinary tract symptoms; E11.9 Type 2 diabetes mellitus without complications | CPT/HCPCS: 80053; 80061; 83036; 84153; 85025 ==

== ENCOUNTER 2024-01-16 10:14 | Day surgery (SDC) | payer OTHER, SELFPAY ==
[2024-01-16] VITALS (12 sets, daily range): BP systolic 131–172; BP diastolic 67–100; PULSE 69–80; RESP 12–19; TEMP 36.4–36.6; O2SAT 93–99; BMI 31.0
[2024-01-16 11:01] LABS: Glucose Point of Care 134 mg/dL (70-110)
[2024-01-16] MEDS: sodium chloride 0.9% 1,000 ML 30 ML IV (11:02)
[2024-01-16] MEDS: gabapentin 300 mg Capsule PO (11:03)
[2024-01-16] MEDS: acetaminophen 1,000 MG/100 ML PIGGYBACK 400 MG IV (11:03)
[2024-01-16] MEDS: CELEcoxib 200 mg Capsule 400 MG PO (11:04)
--- NOTE | 2024-01-16 11:45 | W.PM.OPSUD ---
Surgery/Procedure H&P Update DATE OF PROCEDURE: January 16, 2024 DATE H&P PERFORMED: 01/08/24 H&P UPDATE INFORMATION: I have reviewed H&P completed within last 30 days, I have examined patient prior to procedure, No changes to prior documentation and H&P is in [facility] EMR on date indicated PLANNED PROCEDURE: Operation Date: 01/16/24 12:00 Proposed Procedures p A-1 Leonardo Release LEFT HAND LONG LEFT MIDDLE FINGER(Left) - Alexandra Benitez MD Related Problem List Diagnoses (1) Trigger middle finger of left hand:
--- NOTE | 2024-01-16 12:05 | ANES.PREANE2 ---
Pre-Anesthetic Assessment Height/Weight: Height 1.73 m Weight 92.533 kg Temp Pulse Resp BP Pulse Ox O2 Del Method 97.8 F 80 16 138/90 97 Room Air 01/16/24 11:06 01/16/24 11:06 01/16/24 11:06 01/16/24 11:06 01/16/24 11:06 01/16/24 10:48 Operation Date: 01/16/24 12:00 Proposed Procedures p A-1 Leonardo Release LEFT HAND LONG LEFT MIDDLE FINGER(Left) - Alexandra Benitez MD Familial anesthetic complications: Versed causes nausea Was Beta Rachell taken within 24 hours: N/A Was Clonidine taken within 24 hours: N/A Last intake: Intake Last Liquid Date 01/15/24 Last Liquid Time 22:00 Last Solid Date 01/15/24 Last Solid Time 20:30 Social Tobacco and No alcohol Exam alert, oriented x 3, clear to auscultation bilaterally and regular rate & rhythm Airway Mallampati: Class II Dentition: full Pulmonary Sleep Apnea CV/HEM Hypertension Metabolic Diabetes Mellitus and Hyperlipidemia Anesthetic Plan ASA status: 3 Anesthesia: General Risk of > 500 ml blood loss (7ml/kg in children): No Medications/Allergies Home Medications Medication Instructions Recorded Confirmed Last Taken Type blood-glucose transmitter #1 ea 06/20/22 01/16/24 Unknown Rx (Eversense E3 Smart Transmitter device) glucose #1 ea 06/20/22 01/16/24 Unknown Rx sensor,implantable,continuous with dexamethasone subcutaneous (Eversense E3 Sensor-Jerry subcutaneous device) pen needle, diabetic 32 gauge x ##100 03/24/23 01/16/24 Unknown Rx /32 (TechLITE Pen Needle) Wedge Pillow #1 ea 06/20/23 01/16/24 Unknown Rx insulin glargine 100 unit/mL (3 See Rx Instructions .Route 07/10/23 01/16/24 01/15/24 Rx mL) subcutaneous pen (Lantus .COMPLEX #45 mL Solostar U-100 Insulin) glipizide 5 mg tablet 5 mg PO BID #60 tabs 07/31/23 01/16/24 01/15/24 Rx blood-glucose meter,continuous #1 ea 01/02/24 01/16/24 Unknown Rx (Dexcom G6 Coffin Maker) blood-glucose sensor (Dexcom G6 #3 ea 01/02/24 01/16/24 Unknown Rx Sensor device) blood-glucose transmitter (Dexcom #1 ea 01/02/24 01/16/24 Unknown Rx G6 Transmitter device) tamsulosin 0.4 mg capsule 0.4 mg PO DAILY #30 caps 01/02/24 01/16/24 01/15/24 Rx atorvastatin 10 mg tablet 10 mg PO DAILY 01/15/24 01/16/24 01/15/24 History lisinopril 20 mg tablet 20 mg PO DAILY 01/15/24 01/16/24 01/15/24 History Allergies Allergy/AdvReac Type Severity Reaction Status Date / Time amoxicillin Allergy Intermediate rash Verified 01/16/24 10:48 Current Medications Generic Name Dose Route Start Last Admin Trade Name Freq PRN Reason Stop Dose Admin Sodium Chloride 1,000 mls @ 30 mls/hr 01/16/24 10:45 01/16/24 11:02 Sodium Chloride 0.9% IV 01/17/24 10:44 30 mls/hr .Q24H GISELLE Administration PFSH Anesthesia Medical History (Updated 01/09/24 @ 23:09 by LINDSEY Escalante) Trigger middle finger of left hand Chronic right SI joint pain Arthritis of right acromioclavicular joint Right anterior shoulder pain Hypertension Type 2 diabetes mellitus Surgical History History of shoulder surgery Date of Surgery: June 06, 2023 Pre-op diagnosis: Right shoulder impingement and degenerative osteoarthritis of the acromioclavicular joint. Procedure done: Right shoulder open acromioplasty and distal clavicle resection with bursectomy. Surgeon: Dr. Alexandra Benitez MD Hx of wisdom tooth extraction Hx of colonoscopy History of carpal tunnel release of both wrists Social History Smoking and tobacco/nicotine status: never used tobacco/nicotine Alcohol intake: never Substance/Drug Use: never Data Anesthesia Cardiac Studies: No Data to Display
[2024-01-16] MEDS: ceFAZolin 2,000 mg SDV 2000 MG IVP (13:14)
[2024-01-16] MEDS: BUPivacaine 0.5% INJ 30 mL XX (13:44)
--- NOTE | 2024-01-16 14:14 | PM.OP ---
Operative Report Date of procedure: January 16, 2024 Pre-op diagnosis: Left long finger triggering Post-op diagnosis: Left long finger triggering Post-op findings: Significant thickening of the A1 viki as well as fibrous tissues more proximal to the A1 viki. Also ganglion like fluid around the flexor tendons Procedure done: Left long finger trigger finger release (A1 viki release) Specimens removed/disposition: None Pathology: None Surgeon: Alexandra Benitez MD Clinical Nutrition Manager: None Anesthesia: General (General per LMA, ASA 3) Estimated blood loss (mL): 2 Tourniquet time (min): 13 (250 mmHg) IV fluids (mL): 400 Urine output (mL): 0 (No Staton) Complications: None Findings: Significant irritation to the flexor tendons of the left long finger with thickening of the A1 viki and proximal fibrous tissue Condition: stable Disposition: PACU (Then return to same-day surgery for discharge to home) Brief History: This 53-year-old gentleman presented to the office complaining of triggering of his long finger of the left hand. He had pain associated with this, and had trouble making a fist. Discussion was undertaken with patient regarding trigger finger release. He wished to proceed. Questions were answered and consents were signed preoperatively in the office. Procedure: Patient was brought to the operating theater. He remained on the gurney with a hand table. General anesthesia was administered per LMA, ASA 3. Patient tolerated it well. The patient received 2 g of Ancef prophylactically. A tourniquet was placed high on the arm and was elevated after exsanguination of the arm. Tourniquet time was 13 minutes. Surgical pause was performed prior to commencement of the surgical procedure. At the time of the surgical pause we identified the site and side of surgery. We also identified the patient's identity and appropriate administration of IV antibiotics. Following the surgical pause, an incision was made along the distal palmar crease beneath the long finger. Dissection continued through the skin to the subcutaneous tissues using a scalpel. Blunt dissection was then utilized to spread soft tissues and allow access to the A1 viki. It was then incised longitudinally and sharply using a knife. This was accomplished without difficulty and atraumatically. Once the A1 viki was released, tendons were brought up out of the wound and evaluated. There were no gross masses on the tendons. Tendons were returned to normal position. We then irrigated the wound and subsequently closed it with 3-0 nylon with an interrupted mattress type suture. Following closure of the wound, the wound was injected with bupivacaine plain into the subcutaneous tissues as a local anesthetic. Sterile dressing was then placed consisting of Dermabond, OpSite, fluffed fluffs, sterile soft roll, and an Raul wrap. The patient was returned to recovery in satisfactory condition. He will be discharged home to follow-up with me in the office. There were no complications and no specimens. Related Problem List Diagnoses (1) Trigger middle finger of left hand:
[2024-01-16] MEDS: fentaNYL 50 mcg/mL INJ 2mL IVP (15:08)
[2024-01-16] MEDS: HYDROcodone-acetaminophen 5-325 mg Tablet 1 TAB PO (15:46)
[2024-01-16] MEDS: ondansetron 2 mg/ML SDV 2 mL 4 MG IVP (15:53)
[2024-01-16] MEDS: metoclopramide 5 mg/mL SDV 2 mL 10 MG IVP (16:30)
--- NOTE | 2024-01-16 16:45 | ANE.PACU2 ---
Inpatient post-anesthesia follow up: Airway intact: Yes Vital signs: Temperature 98 F Pulse Rate 75 Respiratory Rate 15 Blood Pressure 160/99 Pulse Oximetry 95 Oxygen Delivery Me thod Room Air Oxygen Flow Rate 10 Fraction of Inspir ed Oxygen Hydration adequate: Yes Nausea and vomiting: No Pain level: 1 Mental status: Baseline
== END 2024-01-16 16:45 | disposition home or self-care (01) ==
PROVIDERS: PCP Family Medicine; Visit Provider Specialist
PROC: (CPT 26055; principal; 2024-01-16 11:50)
DX: M65.332 Trigger finger, left middle finger (principal); G47.30 Sleep apnea, unspecified; I10 Essential (primary) hypertension; E11.9 Type 2 diabetes mellitus without complications; E78.5 Hyperlipidemia, unspecified; Z79.4 Long term (current) use of insulin
CPT/HCPCS: 26055; 36416; 82962; J0131; J0690; J1100; J2250; J2405; J2704; J2765; J3010; J3490; J7030

== ENCOUNTER 2024-02-01 11:34 | Outpatient (CLI) | payer OTHER, SELFPAY ==
--- NOTE | 2024-02-01 11:40 | XR_ITS ---
WS: [id number] XR sacroiliac jts m 3V [id number] REASON FOR EXAM: Right SI joint pain FINDINGS: The sacroiliac joints are intact and well-defined with thin sclerotic margins. There are no erosions, bridging, or fusion. The sacrum is intact with no evidence of insufficiency fractures. XR/XR sacroiliac jts m 3V [id number] IMPRESSION: No significant abnormality.
--- NOTE | 2024-02-01 11:40 | XR_ITS ---
WS: [id number] XR lumbar spine 2-3V* [id number] REASON FOR EXAM: Lumbar radiculopathy - Right FINDINGS: Relatively normal lumbar spine curvatures. No focal vertebral body abnormality. Intervertebral disc spaces are intact and relatively well preserved. No significant listhesis. XR/XR lumbar spine 2-3V* [id number] IMPRESSION: No vertebral body abnormality and no significant discogenic changes.
== END 2024-02-01 11:35 | disposition home or self-care (01) ==
PROVIDERS: PCP Family Medicine; Visit Provider Family Medicine
DX: M54.16 Radiculopathy, lumbar region (principal); M46.1 Sacroiliitis, not elsewhere classified
CPT/HCPCS: 72100; 72202

== ENCOUNTER → 2024-04-16 08:01 | Outpatient (BNVA) | payer OTHER, SELFPAY | PROVIDERS: PCP Family Medicine; Visit Provider Family Medicine | DX: Z13.220 Encounter for screening for lipoid disorders (principal); Z51.81 Encounter for therapeutic drug level monitoring; E11.9 Type 2 diabetes mellitus without complications | CPT/HCPCS: 80053; 80061; 83036; 85025 ==

== ENCOUNTER → 2024-06-10 09:11 | Outpatient (BNVA) | payer OTHER, SELFPAY | PROVIDERS: PCP Family Medicine; Visit Provider Specialist | DX: M19.011 Primary osteoarthritis, right shoulder | CPT/HCPCS: 73030 ==

== ENCOUNTER → 2024-07-03 10:45 | Outpatient (BNVA) | payer OTHER, SELFPAY | PROVIDERS: PCP Family Medicine; Visit Provider Specialist | DX: M25.551 Pain in right hip (principal); M25.552 Pain in left hip; M16.0 Bilateral primary osteoarthritis of hip | CPT/HCPCS: 73523 ==

== ENCOUNTER 2024-07-09 08:31 | Outpatient (RCR) | payer OTHER, SELFPAY | END 2024-07-26 23:59 | disposition home or self-care (01) | LOC: SPT 08:31 | PROVIDERS: Visit Provider Specialist | DX: M54.50 Low back pain, unspecified (principal) | CPT/HCPCS: 97110; 97161 ==

== ENCOUNTER 2024-07-11 07:05 | Outpatient (CLI) | payer OTHER, SELFPAY ==
--- NOTE | 2024-07-11 07:15 | MR_ITS ---
WS: [id number] MRI RIGHT SHOULDER with and without contrast HISTORY: M25.511 - Pain in right shoulder, palpable mass. COMPARISON: Prior MRI 05/11/2023, shoulder radiograph 06/10/2024 TECHNIQUE: Multiplanar sequences of the shoulder joint are submitted. Post contrast imaging obtained after MultiHance 20 mL IV. Marker is placed along the lateral posterior RIGHT shoulder at the level of the humeral head. There i s no soft tissue mass identified. The appearance of the muscle in the subcutaneous tissue is normal. There is no signal abnormality or distortion. No enhancing mass. Prior resection distal RIGHT clavicle. No significant amount of fluid in the subacromial or subdeltoi d bursa. Minimal subacromial impingement. No os acromion. Normal position of the biceps tendon. Micro metallic artifact noted at the surgical site. No rotator cuff muscle atrophy or edema. No tendon tears. No labral tears. No joint effusion. MR/MR shoulder RT wo/w con [id number] IMPRESSION: 1. No mass is identified or abnormal enhancement or signal in the area indicat ed by the patient. 2. Prior distal clavicle resection. 3. No rotator cuff tear or muscle edema or atrophy. 4. No joint effusion. 5. Normal position of the biceps tendon.
[2024-07-11] MEDS: gadobenate dimeglumine 20 mL vial IV (08:06)
== END 2024-07-11 07:06 | disposition home or self-care (01) ==
LOC: RAD 07:05
PROVIDERS: PCP Family Medicine; Visit Provider Specialist
DX: M25.511 Pain in right shoulder (principal); M75.41 Impingement syndrome of right shoulder; M19.011 Primary osteoarthritis, right shoulder; Z98.890 Other specified postprocedural states
CPT/HCPCS: 73223

== ENCOUNTER → 2024-07-25 08:41 | Outpatient (BNVA) | payer OTHER, SELFPAY | PROVIDERS: PCP Family Medicine; Visit Provider Family Medicine | DX: E11.9 Type 2 diabetes mellitus without complications (principal); E78.5 Hyperlipidemia, unspecified; Z51.81 Encounter for therapeutic drug level monitoring | CPT/HCPCS: 80053; 80061; 83036; 85025 ==

== ENCOUNTER 2024-07-27 06:30 | Outpatient (RCR) | payer OTHER, SELFPAY | END 2024-08-23 23:59 | disposition home or self-care (01) | LOC: SPT 06:30 | PROVIDERS: PCP Family Medicine; Visit Provider Specialist | DX: M54.50 Low back pain, unspecified (principal); M19.011 Primary osteoarthritis, right shoulder; M75.41 Impingement syndrome of right shoulder | CPT/HCPCS: 97110 ==

== ENCOUNTER 2024-08-24 06:30 | Outpatient (RCR) | payer OTHER, SELFPAY | END 2024-09-23 12:11 | disposition home or self-care (01) | LOC: SPT 06:30 | PROVIDERS: PCP Family Medicine; Visit Provider Specialist | DX: M54.50 Low back pain, unspecified (principal); M19.011 Primary osteoarthritis, right shoulder | CPT/HCPCS: 97110 ==

== ENCOUNTER → 2024-12-20 08:01 | Outpatient (BNVA) | payer OTHER, SELFPAY | PROVIDERS: PCP Family Medicine; Visit Provider Family Medicine | DX: N40.0 Benign prostatic hyperplasia without lower urinary tract symptoms (principal); E11.9 Type 2 diabetes mellitus without complications; Z51.81 Encounter for therapeutic drug level monitoring | CPT/HCPCS: 80053; 83036; 84153; 85025 ==

== ENCOUNTER → 2025-01-02 07:38 | Outpatient (BNVA) | payer OTHER, SELFPAY | PROVIDERS: PCP Family Medicine; Visit Provider Podiatrist Foot & Ankle Surgery | DX: M79.671 Pain in right foot (principal); M79.672 Pain in left foot | CPT/HCPCS: 73630 ==

== ENCOUNTER → 2025-04-07 09:39 | Outpatient (BNVA) | payer OTHER, SELFPAY | PROVIDERS: PCP Family Medicine; Visit Provider Family Medicine | DX: E11.9 Type 2 diabetes mellitus without complications (principal); Z51.81 Encounter for therapeutic drug level monitoring | CPT/HCPCS: 80053; 83036; 85025 ==

== ENCOUNTER 2025-04-11 09:02 | Outpatient (CLI) | payer OTHER, SELFPAY ==
[2025-04-11 09:09] VITALS: BMI 31.3
--- NOTE | 2025-04-11 09:15 | NMCV_ITS ---
NM ponce perf SPECT r/s* [id number] [address] Age: 55 Gender: M : 1970 Exam Date: 04/11/2025 10:18 Ordering Phys: Junaid Soares MD Technologist: ALFA Combs Exam Location: [facility] Indications: cp STRESS TEST Please see separate stress test report in [facility] for full findings IMAGE PROTOCOL Rest/Stress 1 Exercise Day Radiopharmaceutical Dose (mCi) Administration Site Administered by Rest: Tc-99m 10.7 IV ALFA Combs Sestamibi Stress:Tc-99m 32.3 IV ALFA Mcclure Sestamibi Rest: 11-Apr-2025 60 Discovery 630 Stress: 11-Apr-2025 30 Discovery 630 Radiopharmaceutical was injected at 87 % maximum heart rate. Images obtained in supine and prone position. SPECT RESULTS Technical Quality: Good Raw Data Analysis: Normal Image Corrections: No attenuation or motion correction applied Summed Stress Score: 2 Summed Rest Score: 0 Summed Difference Score: 2 PERFUSION FINDINGS SPECT images demonstrate homogeneous tracer distribution throughout the myocardium. FUNCTIONAL RESULTS (calculated via Gated SPECT) Stress Image LV EF (%): 74 Stress EDV (mL):76 TID: 0.91 Stress ESV (mL):20 FUNCTIONAL FINDINGS: There is normal left ventricular systolic function. IMPRESSIONS Myocardial perfusion imaging is normal. Deshawn Justice MD, FACC (Electronically Signed) Final Date: 11 April 2025 12:48 S
--- NOTE | 2025-04-11 09:15 | ECG_ITS ---
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 Interpretive Statements Procedure: The patient was exercised by the Norberto protocol. Findings:The patient is resting blood pressure was 136/82 with a heart rate of 78 bpm. Patient exercised for 8 minutes and 1 seconds reaching a maximum heart rate of 169 bpm which is 103% of the maximal predicted heart rate. The patient achieved 10.2 METS. The maximum blood pressure was 191/78. At the end of recovery the patient's blood pressure was 160/66 with a heart rate of 96 bpm. Resting EKG showed normal sinus rhythm with no ST-T wave abnormalities. No arrhythmias or significant ST-T wave changes with stress. CONCLUSION: 1. Exercise capacity was average for age. 2. Heart rate response was appropriate. 3. Blood pressure response was appropriate. 4. No symptoms of angina during exercise. 5. Electrocardiogram portion of the stress test without evidence of ischemia. 6. Nuclear scan will be documented separately. Electronically Signed On 04-11-2025 13:09:12 CDT by Deshawn Justice M.D. [email or web address]
[2025-04-11 11:10] VITALS: BP 145/84; PULSE 88
== END 2025-04-11 09:03 | disposition home or self-care (01) ==
PROVIDERS: PCP Family Medicine; Visit Provider Family Medicine
DX: R07.9 Chest pain, unspecified (principal)
CPT/HCPCS: 36415; 78452; A9500

== ENCOUNTER 2025-04-14 10:32 | Outpatient (CLI) | payer OTHER, BC, SELFPAY ==
--- NOTE | 2025-04-14 10:40 | XRR_ITS ---
PROCEDURE INFORMATION: Exam: XR Lumbosacral Spine Exam date and time: 04/14/2025 10:47 AM Age: 55 years old Clinical indication: Low back pain into hips and legs for 3-4 months; Additional info: Lumbar radiculopathy right TECHNIQUE: Imaging protocol: Radiologic exam of the lumbosacral spine. Views: 2 or 3 views. COMPARISON: CR XR lumbar spine 2-3V* [id number] 02/01/2024 11:44 AM FINDINGS: Bones/joints: Normal. No acute fracture. Normal alignment. Soft tissues: Unremarkable. XR/XR lumbar spine 2-3V* [id number] IMPRESSION: No acute findings.
--- NOTE | 2025-04-14 10:40 | XRR_ITS ---
PROCEDURE INFORMATION: Exam: XR Bilateral Sacroiliac Joints Exam date and time: 04/14/2025 10:47 AM Age: 55 years old Clinical indication: Pain in coccyx area; Low back pain into hips and legs for 3-4 months; Additional info: Si joint pain TECHNIQUE: Imaging protocol: XR bilateral XR of the sacroiliac joints. Views: 3 or more views. COMPARISON: CR XR sacroiliac jts m 3V [id number] 02/01/2024 11:44 AM FINDINGS: Bones/joints: Normal. No acute fracture. Soft tissues: Normal. XR/XR sacroiliac jts m 3V [id number] IMPRESSION: No acute osseous findings.
== END 2025-04-14 10:33 | disposition home or self-care (01) ==
LOC: RAD 10:36
PROVIDERS: PCP Family Medicine; Visit Provider Family Medicine
DX: M54.16 Radiculopathy, lumbar region (principal); M46.1 Sacroiliitis, not elsewhere classified
CPT/HCPCS: 72100; 72202

== ENCOUNTER 2025-05-23 07:43 | Outpatient (CLI) | payer OTHER, SELFPAY ==
--- NOTE | 2025-05-23 08:00 | MRR_ITS ---
PROCEDURE INFORMATION: Exam: MR Lumbar Spine Without Contrast Exam date and time: 05/23/2025 8:10 AM Age: 55 years old Clinical indication: Low back pain; RT leg pain/numbness x 7 months, no known injury; Additional info: Lumbar radiculopathy TECHNIQUE: Imaging protocol: Magnetic resonance imaging of the lumbar spine without contrast. COMPARISON: CR XR lumbar spine 2-3V* [id number] 04/14/2025 10:47 AM FINDINGS: Bones/joints: The spine is imaged from mid T11 through S3. AP alignment and curvature are normal. There is no indication of fracture or bone marrow replacement. No Modic endplate changes are noted. A hemangioma is noted within the T12 vertebral body centrum. Spinal cord: The distal cord is normal in appearance terminating at mid L1. The cauda equina is unremarkable in appearance. T11-T12: T11-12: Sagittal images only. Disc height is normal. There is no disc protrusion, foraminal stenosis, or neural impingement. T12-L1: Sagittal images only. Disc height is normal. There is no disc protrusion, foraminal stenosis, or neural impingement. L1-L2: Normal except for mild facet hypertrophy and minimal facet joint effusions. There is no neural impingement. L2-L3: Normal except for mild facet and ligament hypertrophy. There is no neural impingement. L3-L4: Very slight disc space narrowing is present. Bilateral posterolateral annular bulges combine with mild facet and ligament hypertrophy to cause slight neiz-wnaycuf-ujcz-right subarticular L4 root compromise. No root entrapment is seen. The L3 neural foramina are patent. L4-L5: Disc height is normal. There is a shallow disc bulge and doav-zj-ecgquvzy facet and ligament hypertrophy resulting in bilateral L5 subarticular root impingement or mild entrapment. The L4 neural foramina remain patent. L5-S1: There is mild disc space narrowing. The posterior annulus is intact. Mild facet hypertrophy is noted. There is no neural impingement. Soft tissues: The paraspinal soft tissues are normal to the extent visible. MR/MR lumbar spine wo con* [id number] IMPRESSION: 1. Bilateral L5 subarticular root impingement at L4-L5 due to facet arthropathy and bulging of the annulus. 2. L3-L4 disc bulge and facet arthropathy with mild nfgm-ksdmojs-ygka-right subarticular L4 root impingement.
== END 2025-05-23 07:44 | disposition home or self-care (01) ==
LOC: RAD 07:43
PROVIDERS: PCP Family Medicine; Visit Provider Family Medicine
DX: M47.26 Other spondylosis with radiculopathy, lumbar region (principal); M51.362 Other intervertebral disc degeneration, lumbar region with discogenic back pain and lower extremity pain
CPT/HCPCS: 72148

== ENCOUNTER 2025-06-17 13:35 | Outpatient (CLI) | payer OTHER, SELFPAY | END 2025-06-17 13:36 | disposition home or self-care (01) | LOC: SLEEP 13:36 | PROVIDERS: PCP Family Medicine; Referring Provider Family Medicine; Visit Provider Internal Medicine Pulmonary Disease | DX: G47.33 Obstructive sleep apnea (adult) (pediatric) (principal) | CPT/HCPCS: G0399 ==